=== PATIENT | male | born 1955 | race Caucasian/White ===

== ENCOUNTER 2018-11-15 13:03 | Day surgery (SDC) | payer BC, OTHER ==
[~2018-11-15] VITALS: Ht 162.6 cm; Wt 79.4 kg
[~2018-11-15 13:03] MED LIST: AMLO1TAB15 PO; GLYB5TAB3 PO; LISI-471 PO; METF-849 PO
[2018-11-15] MEDS ORDERED: ASPIRIN (13:36)
[2018-11-15 13:38] VITALS: Ht 162.6 cm; Wt 79.4 kg
[2018-11-15 14:08] VITALS: BP 172/94; PULSE 98; RESP 17
--- NOTE | 2018-11-15 14:25 | PREAC ---
Date/Time of Note Date/Time of Note DATE: 11/15/18 TIME: 14:23 Anesthesia Eval and Record Evaluation Time Pre-Procedure Interview DATE: 11/15/18 TIME: 14:23 Age 63 Sex male NPO: 8 hrs Preoperative diagnosis abdominal pain, GERD Planned procedure EGD Past Medical History Past Medical History: Includes Cardio: HTN Endo: Diabetes GI: GERD, Obesity Surgery & Anesthesia Issues No known issue Meds Anticoagulation: No Beta Madeline within 24 hr: No Reason Beta Madeline not given: Pt. not on B-Madeline Reported Medications [Aspirin] No Conflict Check 11/15/18 Amlodipine-Valsartan (Exforge) 1 Tab Tablet, 1 TAB PO DAILY 09/17/12 Glyburide* (Glyburide*) 5 Mg Tablet, 5 MG PO BID 09/17/12 Metformin* (Glucophage*) 500 Mg Tab, 500 MG PO BID 09/17/12 Lisinopril* (Lisinopril*) 20 Mg Tablet, 20 MG PO DAILY 09/17/12 Meds reviewed: Yes Allergies Coded Allergies: No Known Allergy (Unverified , 11/15/18) Allergies Reviewed: Yes Labs/Studies Labs Reviewed: Reviewed by anesthesiologist test: N/A Pre-procedure Exam Last vitals Vital Signs Date Temp Pulse Resp B/P (MAP) Pulse Ox O2 O2 Flow FiO2 Time Delivery Rate 11/15/18 98.5 98 17 172/94 99 Room Air 14:08 (120) Airway: Adequate mouth opening, Adequate thyromental dist Mallampati: Mallampati II Teeth: Normal Lung: Normal Heart: Normal ASA Physical Status ASA physical status: 2 Emergency: None Planned Anesthetic General/MAC: Mask Planned Pain Management Parenteral pain med Pre-operative Attestations Prior to commencing anesthesia and surgery, the patient was re-evaluated, there was verification of: *The patient's identity *The results of appropriate recent lab work and preoperative vital signs *The above evaluation not changing prior to induction *Anesthetic plan, risk benefits, alternative and complications discussed with patient/family; questions answered; patient/family understands, accepts and wishes to proceed. [employer]bage [employer] used RITA ALFONSO MD Nov 15, 2018 14:25
[2018-11-15] MEDS ORDERED: ONDANSETRON 4 MG INJ IV PRN (14:30)
[2018-11-15] MEDS ORDERED: PROPOFOL 40 ML ONE (15:08)
[2018-11-15] MEDS ORDERED: LIDOCAINE 2% (SDV) 5 ML INJ ONE (15:08)
[2018-11-15] MEDS ORDERED: LABETALOL HCL 20MG INJ ONE (15:27)
[2018-11-15] MEDS ORDERED: PROPOFOL 20 ML ONE (15:30)
--- NOTE | 2018-11-15 15:53 | PAC ---
Date/Time of Note Date/Time of Note DATE: 11/15/18 TIME: 15:52 Post-Anesthesia Notes Post-Anesthesia Note Last documented vital signs Vital Signs Date Temp Pulse Resp B/P (MAP) Pulse Ox O2 O2 Flow FiO2 Time Delivery Rate 11/15/18 98.5 98 17 172/94 99 Room Air 14:08 (120) Activity: WNL Respiratory function: WNL Cardiovascular function: WNL Mental status: Baseline Pain reasonably controlled: Yes Hydration appropriate: Yes Nausea/Vomiting absent: Yes Comments BP: 116/62 HR: 79 RR: 15 T: 98 SaO2: 99% RITA ALFONSO MD Nov 15, 2018 15:53
[2018-11-15 16:15] VITALS: BP 146/98; PULSE 86; RESP 14
== END 2018-11-15 16:35 | disposition home or self-care (01) ==
LOC: GIL 13:03
PROVIDERS: ATTEND Internal Medicine Gastroenterology
DX: Z12.11 Encounter for screening for malignant neoplasm of colon (principal); K64.8 Other hemorrhoids; K29.50 Unspecified chronic gastritis without bleeding; K21.0 Gastro-esophageal reflux disease with esophagitis; I10 Essential (primary) hypertension; E11.9 Type 2 diabetes mellitus without complications
CPT/HCPCS: 43239; 45378; 82962; 88305; 88312; Z7610